=== PATIENT | male | born 2000 | race Caucasian/White ===

== ENCOUNTER 2022-03-25 11:26 | Emergency (ER) | payer OTHER ==
[~2022-03-25] VITALS: Ht 188 cm; Wt 75.0 kg
[2022-03-25 11:39] VITALS: BP 108/69; TEMP 98.2
[2022-03-25 12:14] VITALS: PULSE 87
== END 2022-03-25 12:16 | disposition home or self-care (01) ==
LOC: COL.ER 11:26
DX: M54.50 Low back pain, unspecified (principal); X50.1XXA Overexertion from prolonged static or awkward postures, initial encounter
CPT/HCPCS: J1885